=== PATIENT | male | born 1950 | race Caucasian/White ===

== ENCOUNTER → 2020-04-11 | Outpatient (CLI) | payer BC, MEDICARE ==
[~2020-04-11] VITALS: Ht 175.3 cm; Wt 113.9 kg
== END ==
LOC: OPSV 09:46
DX: M06.9 Rheumatoid arthritis, unspecified (principal)
CPT/HCPCS: 96365; 96375; J0129; J1720

== ENCOUNTER → 2020-05-20 | Outpatient (CLI) | payer BC, MEDICARE ==
[~2020-05-20] VITALS: Ht 175.3 cm; Wt 113.9 kg
== END ==
LOC: OPSV 05-09 10:00
DX: M06.9 Rheumatoid arthritis, unspecified (principal)
CPT/HCPCS: 96365; 96375; J0129; J1720

== ENCOUNTER → 2020-07-03 | Outpatient (CLI) | payer BC, MEDICARE ==
[~2020-07-03] VITALS: Ht 175.3 cm; Wt 113.9 kg
[2020-07-03 10:32] LABS: HEMOGLOBIN 15.7 gm/dl (14.0-17.5); RED BLOOD COUNT 4.73 M/UL (4.20-5.50); WHITE BLOOD COUNT 7.6 K/UL (4.5-11.0)
[2020-07-03 10:55] LABS: BUN/CREATININE RATIO 18 (0-10)
== END ==
LOC: OPSV 06-20 11:00
PROVIDERS: Internal Medicine
DX: M06.9 Rheumatoid arthritis, unspecified (principal); M05.79 Rheumatoid arthritis with rheumatoid factor of multiple sites without organ or systems involvement; Z79.899 Other long term (current) drug therapy
CPT/HCPCS: 80053; 85025; 85652; 86140; 96365; 96375; J0129; J1720

== ENCOUNTER → 2020-09-22 | Outpatient (CLI) | payer BC, MEDICARE ==
[~2020-09-22] VITALS: Ht 175.3 cm; Wt 113.9 kg
== END ==
LOC: OPSV 09:00
DX: M06.9 Rheumatoid arthritis, unspecified (principal)
CPT/HCPCS: 96365; 96375; J0129; J1720

== ENCOUNTER → 2020-10-20 | Outpatient (CLI) | payer BC, MEDICARE ==
[~2020-10-20] VITALS: Ht 175.3 cm; Wt 113.9 kg
[2020-10-20 09:07] LABS: HEMOGLOBIN 15.8 gm/dl (14.0-17.5); RED BLOOD COUNT 4.72 M/UL (4.20-5.50); WHITE BLOOD COUNT 6.5 K/UL (4.5-11.0)
[2020-10-20 09:23] LABS: BUN/CREATININE RATIO 14 (0-10)
== END ==
LOC: OPSV 08:38
PROVIDERS: Internal Medicine
DX: M06.9 Rheumatoid arthritis, unspecified (principal); Z51.81 Encounter for therapeutic drug level monitoring; Z79.899 Other long term (current) drug therapy
CPT/HCPCS: 36415; 80053; 85025; 96365; 96375; J0129; J1720

== ENCOUNTER → 2020-11-17 | Outpatient (CLI) | payer BC, MEDICARE ==
[~2020-11-17] VITALS: Ht 175.3 cm; Wt 113.9 kg
== END ==
LOC: OPSV 09:40
DX: M06.9 Rheumatoid arthritis, unspecified (principal)
CPT/HCPCS: 96365; 96375; J0129; J1720

== ENCOUNTER → 2020-12-15 | Outpatient (CLI) | payer BC, MEDICARE ==
[~2020-12-15] VITALS: Ht 175.3 cm; Wt 113.9 kg
[2020-12-15 10:22] LABS: HEMOGLOBIN 16.2 gm/dl (14.0-17.5); RED BLOOD COUNT 4.81 M/UL (4.20-5.50); WHITE BLOOD COUNT 6.6 K/UL (4.5-11.0)
[2020-12-15 10:44] LABS: BUN/CREATININE RATIO 17 (0-10)
== END ==
LOC: OPSV 09:53
PROVIDERS: Internal Medicine
DX: M06.9 Rheumatoid arthritis, unspecified (principal); Z79.899 Other long term (current) drug therapy
CPT/HCPCS: 36415; 80053; 85025; 96365; 96375; J0129; J1720

== ENCOUNTER → 2021-01-12 | Outpatient (CLI) | payer BC, MEDICARE ==
[~2021-01-12] VITALS: Ht 175.3 cm; Wt 113.9 kg
== END ==
LOC: OPSV 09:46
DX: M06.9 Rheumatoid arthritis, unspecified (principal)
CPT/HCPCS: 96365; 96375; J0129; J1720

== ENCOUNTER → 2021-02-09 | Outpatient (CLI) | payer BC, MEDICARE ==
[~2021-02-09] VITALS: Ht 175.3 cm; Wt 113.9 kg
[2021-02-09 10:42] LABS: HEMOGLOBIN 16.2 gm/dl (14.0-17.5); RED BLOOD COUNT 4.8 M/UL (4.20-5.50); WHITE BLOOD COUNT 7.3 K/UL (4.5-11.0)
[2021-02-09 11:00] LABS: BUN/CREATININE RATIO 20 (0-10)
== END ==
LOC: OPSV 09:47
PROVIDERS: Internal Medicine
DX: M06.9 Rheumatoid arthritis, unspecified (principal); Z79.899 Other long term (current) drug therapy
CPT/HCPCS: 36415; 80053; 85025; 96365; 96375; J0129; J1720

== ENCOUNTER → 2021-03-09 | Outpatient (CLI) | payer BC, MEDICARE ==
[~2021-03-09] VITALS: Ht 175.3 cm; Wt 113.9 kg
== END ==
LOC: OPSV 09:36
DX: M06.9 Rheumatoid arthritis, unspecified (principal)
CPT/HCPCS: 96365; 96375; J0129; J1720

== ENCOUNTER → 2021-04-06 | Outpatient (CLI) | payer BC, MEDICARE ==
[~2021-04-06] VITALS: Ht 175.3 cm; Wt 113.9 kg
== END ==
LOC: OPSV 08:18
DX: M06.9 Rheumatoid arthritis, unspecified (principal)
CPT/HCPCS: 96365; 96375; J0129; J1720

== ENCOUNTER → 2021-05-04 | Outpatient (CLI) | payer BC, MEDICARE ==
[~2021-05-04] VITALS: Ht 175.3 cm; Wt 113.9 kg
== END ==
LOC: OPSV 08:40
DX: M06.9 Rheumatoid arthritis, unspecified (principal)
CPT/HCPCS: 96365; 96375; J0129; J1720

== ENCOUNTER → 2021-06-01 | Outpatient (CLI) | payer BC, MEDICARE ==
[~2021-06-01] VITALS: Ht 175.3 cm; Wt 113.9 kg
== END ==
LOC: OPSV 08:38
DX: M06.9 Rheumatoid arthritis, unspecified (principal)
CPT/HCPCS: 96365; 96375; J0129; J1720